=== PATIENT | female | born 1985 | race Hispanic/Latino ===

== ENCOUNTER 2019-07-14 09:00 | Inpatient (IN) | payer MEDICAID ==
[~2019-07-14] VITALS: Ht 165.1 cm; Wt 124.7 kg
[2019-07-14 11:26] LABS: MEAN CORPUSCULAR HEMOGLOBIN 26.6 pg (27.0-33.0); MEAN CORPUSCULAR HGB CONC 33.4 g/dL (32.0-36.0); MEAN CORPUSCULAR VOLUME 79.6 fL (79-99); PLATELET COUNT (AUTO) 231 K/uL (130-400); RED BLOOD CELL COUNT(AUTO) 4.64 MIL/uL (4.00-5.50); RED CELL DISTRIBUTION WIDTH 15.6 % (11.0-15.5)
[2019-07-15] MEDS ORDERED: LACTATED RINGERS 1000ML 1,000 ML IV SCH (05:45)
[2019-07-15] MEDS ORDERED: CEFAZOLIN SODIUM 1 GM VIAL IVP PRN (05:45)
[2019-07-15] MEDS ORDERED: PREN1TAB80 PO (06:07)
[2019-07-15] MEDS ORDERED: FENTANYL CITRATE PF 50 MCG/1 ML 2ML VIAL ONE (07:15)
[2019-07-15] MEDS ORDERED: DURAMORPH PF1 MG/ML 10ML AMP IV ONE (07:15)
[2019-07-15] MEDS ORDERED: CITRIC ACID/SODIUM CITRATE 30 ML UDCUP ONE (07:20)
[2019-07-15] MEDS ORDERED: OXYTOCIN 10 USP UNITS/ML ONE (07:49)
[2019-07-15] MEDS ORDERED: ONDANSETRON HCL 4 MG/2 ML VIAL ONE (08:00)
[2019-07-15] MEDS ORDERED: PHENYLEPHRINE HCL 10 MG/ML 1ML VIAL IV ONE (08:01)
[2019-07-15] MEDS ORDERED: MIDAZOLAM HCL 1 MG/ML 2ML VIAL ONE (08:02)
[2019-07-15 08:12] LABS: HEPATITIS Bs ANTIGEN SCREEN P Negative (Negative)
[2019-07-15] MEDS ORDERED: CEFAZOLIN SODIUM 1 GM VIAL IVP ONE (08:23)
[2019-07-15] MEDS ORDERED: SODIUM CHLORIDE 0.9% 10 ML VIAL IVP PRN (08:30)
[2019-07-15] MEDS ORDERED: MEPERIDINE-PF 75 MG/ML SYG IM PRN (08:30)
[2019-07-15] MEDS ORDERED: PROMETHAZINE HCL 25 MG/ML 1ML AMPULE IM PRN (08:30)
[2019-07-15] MEDS ORDERED: OXYTOCIN-LR 20 UNITS/1000 ML 1,000 ML IV PRN (08:30)
[2019-07-15] MEDS ORDERED: SODIUM CHLORIDE 0.9% IVP PRN (09:30)
[2019-07-15] MEDS ORDERED: NALOXONE HCL 0.4 MG/1 ML ML IVP PRN ×3 (09:30)
[2019-07-15] MEDS ORDERED: NALOXONE HCL IVP PRN (09:30)
[2019-07-15] MEDS ORDERED: ONDANSETRON HCL 4 MG/2 ML VIAL IVP PRN (09:30)
[2019-07-15] MEDS ORDERED: DiphenhydrAMINE HCL 50 MG/ML VIAL IVP PRN (09:30)
[2019-07-15 10:21] VITALS: BP 117/67
[2019-07-15] MEDS: ACETAMINOPHEN-CODEINE 300/30MG TAB PO PRN ×2 (15:31→23:02)
[2019-07-15 16:54] VITALS: BP 100/66
[2019-07-15] MEDS ORDERED: LORA10CA PO (17:03)
[2019-07-15] MEDS: DEXTROSE 5 %-0.45 % NACL 1,000 ML IV PRN (19:10)
[2019-07-15 19:18] VITALS: BP 100/71
[2019-07-15 23:13] VITALS: BP 99/56
[2019-07-16] MEDS: DEXTROSE 5 %-0.45 % NACL 1,000 ML IV PRN (03:06)
[2019-07-16 03:14] VITALS: BP 97/53
[2019-07-16] MEDS: ACETAMINOPHEN-CODEINE 300/30MG TAB PO PRN ×3 (04:16→23:49)
--- NOTE | 2019-07-16 06:27 | NUR ---
DR. ROWLAND ROUNDED ON PT AT THIS TIME. NO C/O OFFERED BY PT.
--- NOTE | 2019-07-16 06:30 | NUR ---
WENT IN TO DC PT'S DIOR CATH BUT PT REFUSED AT THIS AND SAID SHE WILL WAIT TILL AFTER BREAKFAST, MD MELENDEZ AND SAID IT WAS OK.
[2019-07-16 06:38] LABS: HEMATOCRIT 30.6 % (36-48); MEAN CORPUSCULAR HEMOGLOBIN 26.6 pg (27.0-33.0); MEAN CORPUSCULAR HGB CONC 33.2 g/dL (32.0-36.0); PLATELET COUNT (AUTO) 183 K/uL (130-400); RED BLOOD CELL COUNT(AUTO) 3.83 MIL/uL (4.00-5.50); RED CELL DISTRIBUTION WIDTH 15.7 % (11.0-15.5); WHITE BLOOD COUNT (AUTO) 6.6 K/uL (4.8-10.8)
[2019-07-16] MEDS ORDERED: HYDROCODONE/ACETAMINOPHEN 5/325 MG TAB PO PRN (07:15)
[2019-07-16] MEDS ORDERED: ACETAMINOPHEN-CODEINE 300/30MG TAB PO PRN (07:15)
[2019-07-16] MEDS ORDERED: ACETAMINOPHEN EXTRA STRENGTH 500 MG TABLET PO PRN (07:15)
[2019-07-16] MEDS ORDERED: LANOLIN 30GM OINTMENT TP PRN (07:15)
[2019-07-16] MEDS ORDERED: BISACODYL 10 MG SUPP.RECT RC PRN (07:15)
[2019-07-16 07:46] VITALS: BP 96/51
[2019-07-16] MEDS ORDERED: DIPH,PERTUSS(ACELL),TET VAC/PF 0.5 ML VIAL IM SCH (09:00)
[2019-07-16] MEDS: DOCUSATE SODIUM 100 MG CAP PO SCH ×2 (09:02→21:31)
[2019-07-16] MEDS: SIMETHICONE 80 MG TAB.CHEW PO PRN ×4 (09:02→21:31)
[2019-07-16] MEDS: IBUPROFEN 800 MG TAB PO SCH ×2 (09:03→15:38)
[2019-07-16 11:35] VITALS: BP 110/69
--- NOTE | 2019-07-16 14:32 | NUR ---
HX of Post Depression Sw met with pt who states she lives with her mother Alejandra Cordon [id number] and pt's 9yro daughter Jennifer Cordon. This is second child for pt, son Hieu Cordon. Pt works, is independent, has Medicaid and child support for Jennifer. Pt has basic items for NB including car seat and HPA will follow. FOB Julio Herrera, (41) involved and supportive. Pt reports hx of PP depression with her daughter. Pt states she was very anxious, and cry a lot, so she reported it to her OB who started pt on counseling and meds for like 2-3 months. Pt states this with support from her mother were what go her thru this difficult time. Pt has already discussed concerns with OB of PPD after delivery and they have a plan in the event pt begins to experience s/s. Pt's mother and FOB also aware and supportive. Pt denies any hx with abuse, domestic violence, CPS, legal or substance abuse issues.
[2019-07-16 16:19] VITALS: BP 111/60
[2019-07-16 19:45] VITALS: BP 96/61
[2019-07-16 23:50] VITALS: BP 106/53
[2019-07-17] MEDS: IBUPROFEN 800 MG TAB PO SCH ×2 (00:33→08:23)
[2019-07-17 03:37] VITALS: BP 98/51
[2019-07-17] MEDS: ACETAMINOPHEN-CODEINE 300/30MG TAB PO PRN (04:26)
--- NOTE | 2019-07-17 07:00 | NUR ---
Education: Exit care instructions given to patient, she verbalizes understanding.
[2019-07-17 08:05] VITALS: BP 108/71
[2019-07-17] MEDS: SIMETHICONE 80 MG TAB.CHEW PO PRN (08:22)
[2019-07-17] MEDS: DOCUSATE SODIUM 100 MG CAP PO SCH (08:22)
[2019-07-17 11:27] VITALS: BP 106/67
--- NOTE | 2019-07-17 11:30 | NUR ---
PATIENT WAS GIVEN DISCHARGE INSTRUCTIONS AND SCRIPT FOR PAIN MANAGEMENT AFTER DISCHARGE. PATIENT VERBALIZED UNDERSTANDING INSTRUCTIONS GIVEN.
== END 2019-07-17 11:55 | disposition home or self-care (01) | DRG 540 ==
LOC: EDSTATUS 09:00 → LDH 07-15 05:30 → WSH 07-15 10:14
PROVIDERS: ADMIT Specialist; ATTEND Specialist
PROC: 3E0234Z Introduction of Serum, Toxoid and Vaccine into Muscle, Percutaneous Approach (ICD-10-PCS; 2019-07-15)
PROC: 10D00Z1 Extraction of Products of Conception, Low, Open Approach (ICD-10-PCS; principal; 2019-07-15 08:00)
DX: O34.211 Maternal care for low transverse scar from previous cesarean delivery (principal); O32.1XX0 Maternal care for breech presentation, not applicable or unspecified; Z37.0 Single live birth; Z3A.39 39 weeks gestation of pregnancy; Z23 Encounter for immunization
CPT/HCPCS: 36415; 59510; 85027; 86592; 86850; 86900; 86901; 87340; 90715; A4344; G0378; J0690; J2250; J2274; J2370; J2405; J2590; J3010; J7120